=== PATIENT | female | born 1960 | race Asian ===

== ENCOUNTER 2023-08-19 15:26 | Emergency (ER) | payer OTHER ==
[~2023-08-19] VITALS: Ht 160 cm; Wt 61.7 kg
[2023-08-19] MEDS ORDERED: NITR-104 PO (15:55)
[2023-08-19] MEDS ORDERED: POMA3CAP PO (15:55)
[2023-08-19] MEDS ORDERED: ONDA4TAB5 PO (15:55)
[2023-08-19 16:32] LABS: BASOPHILS % (AUTO) 0.5 % (0.0-2.0); EOSINOPHILS % (AUTO) 0.2 % (0.0-7.0); HEMATOCRIT 23.3 % (31.2-41.9); HEMOGLOBIN 7.6 g/dL (10.9-14.3); LYMPHOCYTES # (AUTO) 0.6 K/uL (0.8-4.8); LYMPHOCYTES % (AUTO) 7.6 % (20.5-51.5); MEAN CORPUSCULAR HEMOGLOBIN 25.6 uug (24.7-32.8); MEAN CORPUSCULAR HGB CONC 33 g/dL (32.3-35.6); MEAN CORPUSCULAR VOLUME 78.1 fL (75.5-95.3); MONOCYTES # (AUTO) 0.4 K/uL (0.1-1.30); MONOCYTES % (AUTO) 5.5 % (0.0-11.0); NEUTROPHILS # (AUTO) 6.4 K/uL (1.8-8.9); NEUTROPHILS % (AUTO) 86.2 % (38.5-71.5); PLATELET COUNT (AUTO) 165 K/uL (179-408); RED BLOOD CELL COUNT(AUTO) 2.98 MIL/uL (3.63-4.92); RED CELL DISTRIBUTION WIDTH 23.4 % (12.3-17.7); WHITE BLOOD COUNT (AUTO) 7.5 K/uL (3.8-11.8)
[2023-08-19] MEDS: IV NORMAL SALINE 1000 ML BAG IV ONE (16:35)
[2023-08-19] MEDS: VANCOMYCIN IV 1,000 MG in IV DEXTROSE 5% 250 ML IV ONE (16:40)
[2023-08-19 17:01] LABS: *BILIRUBIN,URIN NEGATIVE (NEGATIVE); *BLOOD, URINE 1+ (NEGATIVE); *CLARITY,URINE CLEAR (CLEAR); *COLOR,URINE YELLOW (YELLOW); *KETONES,URINE NEGATIVE (NEGATIVE); *UROBILINOGEN,URINE 0.2 E.U./dl (NORMAL); LEUKOCYTE ESTERASE ,URINE NEGATIVE (NEGATIVE); NITRITE, URINE NEGATIVE (NEGATIVE); PH,URINE 5.5 (5.0-8.0); UGLUCOSE NEGATIVE (NEGATIVE)
[2023-08-19 17:01] LABS: CALCIUM 9.9 mg/dL (8.5-10.1); CARBON DIOXIDE 21 mmol/L (21-32); CHLORIDE 99 mmol/L (98-107); CREATININE 1.1 mg/dL (0.6-1.3); GLUCOSE 135 mg/dL (74-106); POTASSIUM 3.5 mmol/L (3.5-5.1); SODIUM SERUM 138 mmol/L (136-145); UREA NITROGEN, BLOOD 10 mg/dL (7-18)
[2023-08-19 17:06] LABS: *PROTEIN,URINE 3+ (NEGATIVE)
[2023-08-19 17:07] LABS: DIFFERENTIAL COMMENT 1
[2023-08-19 17:10] LABS: ALANINE AMINOTRANSFERASE 57 U/L (14-59); ALBUMIN 2.5 g/dL (3.4-5.0); ALKALINE PHOSPHATASE 107 U/L (50-136); ASPARTATE AMINOTRANSFERASE 56 U/L (15-37); BILIRUBIN,DIRECT 0.2 mg/dL (0.0-0.2); BILIRUBIN,TOTAL 0.5 mg/dL (0.2-1.0); TOTAL PROTEIN, SERUM 9.1 g/dL (6.4-8.2)
[2023-08-19 17:14] LABS: LACTIC ACID 3.1 mmol/L (0.4-2.0)
[2023-08-19 17:22] LABS: BACTERIA,URINE NONE SEEN /HPF (NONE SEEN); SQUAMOUS EPITHELIAL CELL,UR NONE SEEN /HPF (NONE SEEN); WBC,URINE 0-3 /HPF (0-3)
[2023-08-19] MEDS: CEFTAZIDIME 1 G in IV DEXTROSE 5% 50 ML IV ONE (18:00)
[2023-08-19] MEDS ORDERED: BENZONATATE 100 MG CAPSULE ONE (20:02)
[2023-08-19] MEDS: BENZONATATE 100 MG CAPSULE PO ONE (20:03)
[2023-08-19 21:13] VITALS: O2SAT 98
[2023-08-19] MEDS ORDERED: ACETAMINOPHEN 325 MG TABLET ONE (21:17)
[2023-08-19] MEDS: ACETAMINOPHEN 325 MG TABLET PO ONE (21:18)
== END 2023-08-19 22:43 | disposition short-term general hospital (02) ==
LOC: ER 15:33
DX: A41.9 Sepsis, unspecified organism (principal); C90.00 Multiple myeloma not having achieved remission; E87.20 Acidosis, unspecified; R79.89 Other specified abnormal findings of blood chemistry; Z79.899 Other long term (current) drug therapy; Z20.822 Contact with and (suspected) exposure to COVID-19
CPT/HCPCS: 99291; 96365; 96366; 87426; 80076; 80048; 81001; 83735; 85025; 85730; 87040 ×2; 84484; 93005; 71045; 96368; 83605; J0713; J7040; 36415; A4606; A4663